=== PATIENT | female | born 1960 | race Caucasian/White ===

== ENCOUNTER 2017-04-23 14:00 | Inpatient (IN) | payer MEDICARE, OTHER ==
[~2017-04-23] VITALS: Ht 162.6 cm; Wt 87.5 kg
--- NOTE | ~2017-04-23 | PN ---
Unit #: [id number] #: [id number] Patient: RUTH YEUNG [id number] [facility] [address] [place] [address] [id number] I MR#: [id number] NAME: RUTH YEUNG ROOM: [facility] Age: 56 Sex: F Admission Date: 04/23/2017 : 1960 Attending Physician: Venu Jeff M.D. Admitting Physician: Venu Jeff M.D. Primary Care Physician: Generic Doctor Not In System [facility] PROGRESS NOTES DATE 04/27/2017 DISCUSSION Ms. Ruth Yeung is a 56-year-old female, seen on 04/27/2017. The patient reported still feeling sad, depressed, anxious, wanted her Klonopin back. The patient had multiple symptoms but seems to do okay after assurance but according to the report, thought process circumstantial, paranoid. The patient's Accu-Cheks were 42 and 108, Levemir 21 units given in the morning. The patient was somewhat shaky in the morning but still feeling sad, depressed, anxious. REVIEW OF SYSTEMS Complete review of systems unremarkable. MENTAL STATUS EXAMINATION General appearance: Patient dressed casually, walked with the help of a walker. Attention span and concentration, fair. Oriented in time, place, and person. Mood and affect, sad, dysphoric, anxious. Speech, regular rate. Thought process, goal-directed. The patient denied any thoughts of harming self or others but somewhat circumstantial, thought process. Recent and remote memory, poor. Insight and judgment, poor. DIAGNOSIS Schizoaffective disorder, bipolar type. ASSESSMENT/PLAN Advised to continue with the current medication and therapeutic protocol, and if needed consider further adjustment of medication. Dictated by... Lashawn Alves/damián TD: 04/28/2017 06:17 JOB #: [id number] Unit #: [id number] #: [id number] Patient: RUTH YEUNG [facility] PROGRESS NOTES Page 1 of 1 X Venu Jeff MD PROGRESS NOTE
--- NOTE | ~2017-04-23 | DS ---
Unit #: [id number] #: [id number] Patient: RADHA YEUNG [id number] [facility] [address] [place] [address] [id number] MR#: [id number] NAME: RADHA YEUNG ROOM: [facility] Age: 56 Sex: F Admission Date: 04/23/2017 : 1960 Discharge Date: 04/30/2017 Attending Physician: eVnu Jeff M.D. Primary Care Physician: Generic Doctor Not In System DISCHARGE SUMMARY REASON FOR ADMISSION Depression. DIAGNOSTIC STUDIES LABORATORY DATA: Glucose 120. HOSPITAL COURSE The patient was admitted to inpatient unit on April 23 and discharged on 04/30/17. Patient was treated on the inpatient unit with medication management, psychotherapy, and structured milieu. Patient initially showed improvement, but continues to report having severe anxiety and wanted to change her medication. Patient refused to participate in group therapy. Reported feeling anxious. Patient, this afternoon, was slow to respond and psychomotor retardation noted. Patient's Accu-Chek was 158 and temperature 91.1. Patient's vital signs: 186/83, heart rate 109, and oxygen saturation 96%. Code was called and, subsequently, patient was transferred to [facility] for medical stabilization. DISCHARGE MEDICATIONS 1. Zestril 20 mg daily for hypertension. 2. Trazodone 75 mg at bedtime for sleep. 3. Cogentin 1 mg b.i.d. for EPS symptoms. 4. KlonoPIN 0.5 mg t.i.d. for anxiety. 5. Effexor XR 225 mg daily for depression. 6. SEROquel 200 mg at bedtime for psychosis. 7. Celexa 20 mg daily for depression. 8. Vistaril 25 mg 3 times a day for anxiety. 9. NovoLog. 10. Levemir. 11. Saphris 10 mg daily for psychosis. DISCHARGE DIAGNOSES PSYCHIATRIC: Schizoaffective disorder, bipolar type, F25.9. SECONDARY DIAGNOSIS: Deferred. MEDICAL DIAGNOSIS 1. Obesity. 2. Diabetes mellitus. 3. Chronic obstructive pulmonary disease. 4. Hypertension. 5. Hypercholesterolemia. Unit #: [id number] #: [id number] Patient: RADHA YEUNG 6. Patient is on a colostomy bag. STRESSORS: Psychosocial stressors. INSTRUCTIONS TO PATIENT Patient to follow up in outpatient clinic as per social media marketer. CONDITION AT DISCHARGE Patient pleasant and cooperative without any psychotic symptoms or any suicidal ideation. PROGNOSIS Guarded. DIET AND ACTIVITY As tolerated. Dictated by... Lashawn Alves/jaja TD: 05/01/2017 14:19 JOB #: [id number] DISCHARGE SUMMARY Page 1 of 1 X Venu Jeff MD X DISCHARGE SUMMARY
--- NOTE | ~2017-04-23 | PA ---
Unit #: [id number] #: [id number] Patient: RUTH YEUNG [id number] [facility] [address] [place] [address] [id number] MR#: [id number] NAME: RUTH YEUNG ROOM: [facility] Age: 56 Sex: F Admission Date: 04/23/2017 : 1960 Date of Assessment: Attending Physician: Venu Jeff M.D. Admitting Physician: Venu Jeff M.D. Primary Care Physician: Generic Doctor Not In System PSYCHIATRIC ASSESSMENT INFORMANTS The patient reliability, fair; chart reliability, good. CHIEF COMPLAINT Depression and suicidal ideation. HISTORY OF PRESENT ILLNESS Ms. Ruth Yeung is a 56-year-old female, presented with the above-mentioned complaint. The patient reported that her medications are not working. She is afraid, fearful, sad, depressed, suicidal ideation. The patient reports that her anxiety is paralyzing her thinking of suicide everyday. The patient reported diagnosed with panic disorder and schizophrenia. The patient reports that she had surgery in December and then she messed up. The patient reports that she has always had psych history, but it is getting worse some. The patient reports in the last 6 weeks, it has been like a revolving tour between [place] and [facility]. The patient reports that she does have a drug issue, abusing prescription medication both pain medication and psychiatric medication. Yesterday someone called the police because they were concerned that she has not been taking care of. The patient lives alone with a dog. The patient reports that her ex- checks on her daily. The patient reports that she has not heard him in the last 4 days. The patient reports currently on fixed income struggling. The patient has diabetes, hypertension, colostomy bag, history of migraine, sleeping 4 hours, appetite fair, suicidal ideation, needing inpatient admission at this time for psychiatric stabilization. PAST PSYCHIATRIC HISTORY Remarkable for history of multiple [facility] at [facility]/2015, 2005, 2004. Outpatient services through [facility]. Outpatient followup with Dr. Gorman for med management. FAMILY HISTORY AND SOCIAL HISTORY The patient lives alone, poor support system. No known history of any abuse. The patient's family history is remarkable for history of alcohol abuse in paternal side of the family and substance abuse in biological parents. MEDICAL HISTORY Remarkable for history of hypertension, migraine. The patient has a colostomy bag. History of morbid obesity, diabetes mellitus, COPD, hypercholesterolemia, hypertension. Unit #: [id number] #: [id number] Patient: RUTH YEUNG MEDICATION HISTORY The patient is on Seroquel XR 400 mg at bedtime, NovoLog, Levemir, melatonin 5 mg at bedtime, Desyrel 100 mg at bedtime, Celexa 40 mg daily, Neurontin 600 mg q.i.d., Saphris 10 mg b.i.d., Claritin 10 mg daily, Protonix 40 mg daily, Linzess 290 mcg daily, Klor-Con M10 daily, aspirin 81 mg daily, furosemide 20 mg daily, Effexor 300 mg daily, and Glucophage 500 mg daily. ALLERGIES Macrobid. SUBSTANCE ABUSE HISTORY The patient admitted abuse of psych medication. History of tobacco use, age of onset 14; history of abuse of opiates and benzodiazepine. REVIEW OF SYSTEMS HEENT: Eyes, clear. Ears, nose, mouth, and throat; clear. CARDIOVASCULAR: Unremarkable. RESPIRATORY: Unremarkable. GI: Unremarkable. : Unremarkable. SKIN: Unremarkable. LYMPH NODE: Unremarkable. NEUROLOGIC: Unremarkable. ENDOCRINE: Unremarkable. HEMATOLOGIC: Unremarkable. ALLERGIC/IMMUNOLOGIC: Unremarkable. MUSCULOSKELETAL: Muscle strength and tone, no atrophy or abnormal movement. Gait normal MENTAL STATUS EXAMINATION CONSTITUTIONAL: Measurement of vital signs; temperature is 98.0, pulse 101, respirations 18, oxygen saturation 95%, blood pressure 120/90, height 5 feet 4 inches, and weight 193 pounds. GENERAL APPEARANCE: The patient dressed casually, moderately obese. No facial deformity noted. MUSCULOSKELETAL: Please see above. PSYCHIATRIC EXAMINATION Description of speech; rapid in rate, spontaneous. Description of thought process, circumstantial. Description of association, guarded and paranoid. Description of abnormal psychotic thinking, guarded paranoid, mood lability, depression, suicidal ideation. Description of the patient's judgment, concerning everyday activity, poor. Social situation, poor. Concerning psychiatric condition, poor. Complete mental status examination; oriented in time, place, and person. Recent and remote memory, fair. Attention span and concentration, fair. Language, able to name object and repeat phrases. Fund of knowledge, aware of current event and passive vocabulary intact. Mood and affect, sad and dysphoric. Insight and judgment, fair to poor. The patient is also somewhat guarded and paranoid. ASSETS AND LIABILITIES Assets; the patient is articulate, able to take care of her ADL. Liability; history of depression, psychosis, and anxiety. ADMITTING DIAGNOSES Unit #: [id number] #: [id number] Patient: RUTH YEUNG Psychiatric: Schizoaffective disorder, bipolar type, F25.9; rule out schizophrenia, chronic, paranoid type, F20.0; bipolar mood disorder, recurrent depressed, F31.9; history of opioid pain medication dependence abuse, F11.20. Secondary diagnosis: Deferred. Medical diagnosis: History of morbid obesity, diabetes mellitus, chronic obstructive pulmonary disease, hypertension, hypercholesterolemia. The patient has a colostomy bag. Stressors: Psychosocial stressor. PSYCHIATRIC PLAN AND TREATMENT GOAL AND DISCHARGE PLAN 1. Advised to admit the patient on the inpatient unit. Provide safe, supportive, and structured environment. 2. Ordered labs; CBC, CMP, UA, and UDS. 3. Precaution for self-harm, VTS monitoring, C1 precaution. 4. Advised to continue with the home medication at this time. The patient is on multiple medication. We will watch her closely. The patient is on 2 antipsychotics, 2 antidepressants, also taking Neurontin, try to keep the medication minimum as possible but for anxiety, the patient is requesting for Klonopin and will try to avoid and consider Vistaril for anxiety. The patient to attend group therapy, individual therapy. 5. Treatment goal; to attain euthymic mood, gain insight into her problem, and learn coping skills. 6. Discharge plan; plan to stabilize the patient and consider followup in outpatient program. ESTIMATED LENGTH OF STAY 2 weeks. Dictated by... Venu Jeff M.D. EDGAR/aravind TD: 04/24/2017 17:44 JOB #: [id number] PSYCHIATRIC ASSESSMENT Page 1 of 1 X Venu Jeff MD PSYCHIATRIC ASSESSMENT
--- NOTE | ~2017-04-23 | CO ---
Unit #: [id number] #: [id number] Patient: RUTH YEUNG [id number] [facility] [address] [place] [address] [id number] MR#: [id number] NAME: RUTH YEUNG ROOM: [facility] Age: 56 Sex: F Admission Date: 04/23/2017 : 1960 Attending Physician: Venu Jeff M.D. Primary Care Physician: Generic Doctor Not In System Consultation Date: 04/27/2017 CONSULTATION REPORT HISTORY OF PRESENT ILLNESS Ruth reports that for the past 4 days, she has felt dizzy and she has also noticed some jerking movements. She is unsure how long she has had these tracking movements. It could have been several days or several months, she is not sure. She is a poor historian. She also reports that her ears feel stopped up. This morning when she was trying to go the bathroom, she had to sit on the floor because she felt really dizzy. She is currently ambulating with a walker and she says this helps with her dizziness. She has no fever. No sore throat. No cough. No other complaints. PHYSICAL EXAMINATION CARDIAC: Regular rate and rhythm. No murmurs, gallops, or rubs. RESPIRATORY: Clear to auscultation bilaterally. ENT: No lymphadenopathy. Left cerumen impaction. ASSESSMENT AND PLAN 1. Cerumen impaction. We will use Murine ear wax removal drops and the patient is instructed to follow up with primary care provider. Please notify, if dizziness continues. 2. Jerking movements. CMP was reviewed and appears to be normal. We will obtain mag level as well. Dictated by... Keri Jay/aravind TD: 04/28/2017 04:08 JOB #: [id number] Unit #: [id number] #: [id number] Patient: RUTH YEUNG CONSULTATION REPORT Page 1 of 1 X MIKE TORRES APRN X CONSULTATION REPORT
--- NOTE | ~2017-04-23 | CO ---
Unit #: [id number] #: [id number] Patient: RUTH YEUNG [id number] [facility] [place] [address] [id number] MR#: [id number] NAME: RUTH YEUNG ROOM: [facility] Age: 56 Sex: F Admission Date: 04/23/2017 : 1960 Attending Physician: Venu Jeff M.D. Primary Care Physician: Generic Doctor Not In System CONSULTATION REPORT Medical consult was requested by Dr. Jeff and completed on 04/28/2017. HISTORY OF PRESENT ILLNESS Ruth had blood pressure 120/70 and 130/77 with heart rate of 117 and 94. She also had a potassium 3.9, creatinine 1.4, GFR 41.3, and sodium of 134. She has prescribed to her hydrochlorothiazide 50 mg t.i.d. and has been taking this at home as well. She has a history of low blood pressure that caused a fall as well. She denies any headaches, blurry vision, dizziness, or shortness of breath, and has no chest pain. No other complaints. PHYSICAL EXAMINATION CARDIAC: Regular rate and rhythm. No murmurs, gallops, or rubs. RESPIRATORY: Clear to auscultation bilaterally. ASSESSMENT AND PLAN Hypotension with an abnormal BMP. I believe that low potassium, creatinine, and sodium are all likely due to her dose of hydrochlorothiazide. We will decrease her hydrochlorothiazide to 50 mg once daily. Check her blood pressure three times daily and repeat BMP in the morning. We will continue to follow her. Dictated by... Keri Jay/aravind TD: 05/11/2017 19:17 JOB #: [id number] CONSULTATION REPORT Page 1 of 1 X MIKE TORRES APRN X CONSULTATION REPORT
--- NOTE | ~2017-04-23 | PN ---
Unit #: [id number] #: [id number] Patient: RUTH YEUNG [id number] [facility] [address] [place] [address] [id number] MR#: [id number] NAME: RUTH YEUNG ROOM: [facility] Age: 56 Sex: F Admission Date: 04/23/2017 : 1960 Attending Physician: Venu Jeff M.D. Admitting Physician: Venu Jeff M.D. Primary Care Physician: Cezar Doctor Not In System [facility] PROGRESS NOTES DATE 04/28/2017 DISCUSSION Ms. Ruth Yeung is a 56-year-old female, seen on 04/28/2017. The patient interviewed, chart reviewed, and obtained information from the nursing staff. The patient was walking with the help of a walker, mood was labile. The patient seemed to be very anxious, nervous. Vital signs stable, 98.4, 117, 16, and 120/70. The patient reported having severe anxiety. The patient is on multiple medications. REVIEW OF SYSTEMS Complete review of systems unremarkable. MENTAL STATUS EXAMINATION General appearance: Patient dressed casually, moderately obese. Walked with the help of a walker. Attention span and concentration, fair. Oriented in time, place, and person. Mood and affect, labile. Speech, rapid. Thought process, circumstantial. The patient denied any thoughts of harming self or others but passive SI, severe anxiety, seclusive, isolative, reported having trouble in crowds. Recent and remote memory, poor. Insight and judgment, poor. DIAGNOSIS Schizoaffective disorder, bipolar type. ASSESSMENT/PLAN Recommending at this time to cut back on the medication as higher dosage may be making her worse, we will try on a lower dosage, cutting back Effexor from 300 to 225 mg daily, decreasing Saphris from 10 mg twice daily to 10 mg at bedtime only, decrease in Celexa from 40 to 20 mg daily. We will continue to follow up if needed consider further adjustment of Vistaril. The patient is to continue with the inpatient programming and also discontinue Thorazine. Dictated by... Venu Jeff M.D. Unit #: [id number] #: [id number] Patient: RUTH YEUNG EDGAR/damián TD: 04/29/2017 08:04 JOB #: [id number] [facility] PROGRESS NOTES Page 1 of 1 X Venu Jeff MD PROGRESS NOTE
--- NOTE | ~2017-04-23 | PN ---
Unit #: [id number] #: [id number] Patient: RUTH YEUNG [id number] [facility] [address] [place] [address] [id number] I MR#: [id number] NAME: RUTH YEUNG ROOM: [facility] Age: 56 Sex: F Admission Date: 04/23/2017 : 1960 Attending Physician: Venu Jeff M.D. Admitting Physician: Venu Jeff M.D. Primary Care Physician: Generic Doctor Not In System [facility] PROGRESS NOTES DATE 04/29/2017 DISCUSSION Ruth Yeung is a 56-year-old female seen on 04/29/2017. Patient interviewed. Chart reviewed. Obtained information from nursing staff. Patient reported severe anxiety. Patient reports that she was on Klonopin that helped her. Patient also reported having trouble sleeping, recently her medications lowered because of possible tardive dyskinesia, EPS symptoms. Patient's vital signs 98.7, 89, 20, 124/61. Complete review of system unremarkable. MENTAL STATUS EXAMINATION General appearance, patient dressed casually. Attention span, concentration fair. Oriented in time, place and person. Mood and affect labile. Speech rapid. Thought process circumstantial. Patient denied any suicidal ideation but passive SI, withdrawn, isolative, anxious, paranoia. Recent and remote memory poor. Insight and judgement poor. DIAGNOSIS Schizoaffective disorder, bipolar disorder. ASSESSMENT/PLAN Advised to continue with the current medication, Cogentin 1 mg b.i.d. for EPS symptoms. Also, added Klonopin 0.5 mg t.i.d. We will monitor very closely. Patient is on a lower dosage of medication. If needed, consider further adjustment of medication. Dictated by... Lashawn Alves/teodora TD: 04/29/2017 20:43 JOB #: [id number] Unit #: [id number] #: [id number] Patient: RUTH YEUNG [facility] PROGRESS NOTES Page 1 of 1 X Venu Jeff MD X PROGRESS NOTE
--- NOTE | ~2017-04-23 | PN ---
Unit #: [id number] #: [id number] Patient: RUTH YEUNG [id number] [facility] [address] [place] [address] [id number] I MR#: [id number] NAME: RUTH YEUNG ROOM: [facility] Age: 56 Sex: F Admission Date: 04/23/2017 : 1960 Attending Physician: Venu Jeff M.D. Admitting Physician: Venu Jeff M.D. Primary Care Physician: Generic Doctor Not In System [facility] PROGRESS NOTES DATE 04/26/2017 DISCUSSION Ms. Ruth Yeung is a 56-year-old female seen on 04/26/2017. Patient continues to report that she needs to be on Klonopin. Patient possibly was taking pain medication and maybe having withdrawals. The patient was having problem with the dizziness, mood lability. Patient was subsequently started on COWS protocol for opiate withdrawal. Patient's mood sad, dysphoric, withdrawn, guarded, paranoid, mood lability, irritability, reporting severe anxiety. Complete review of system unremarkable. MENTAL STATUS EXAMINATION General appearance, patient dressed casually. Attention span, concentration poor. Oriented in place and person. Mood and affect labile. Speech monotone. Thought process concrete. Patient guarded, paranoid, mood lability, severe anxiety, isolative, passive SI. Recent and remote memory poor. Insight and judgement poor. DIAGNOSIS Schizoaffective disorder, bipolar type. ASSESSMENT/PLAN Advised to continue with current medication and therapeutic protocol. If needed, consider further adjustment of medication. Dictated by... Lashawn Alves/teodora TD: 04/27/2017 15:15 JOB #: [id number] Unit #: [id number] #: [id number] Patient: RUTH YEUNG PROGRESS NOTES Page 1 of 1 X Venu Jeff MD PROGRESS NOTE
--- NOTE | ~2017-04-23 | PN ---
Unit #: [id number] #: [id number] Patient: RUTH YEUNG [id number] [facility] [address] [place] [address] [id number] MR#: [id number] NAME: RUTH YEUNG ROOM: [facility] Age: 56 Sex: F Admission Date: 04/23/2017 : 1960 Attending Physician: Venu Jeff M.D. Admitting Physician: Venu Jeff M.D. Primary Care Physician: Generic Doctor Not In System [facility] PROGRESS NOTES DATE 04/24/2017 DISCUSSION Ms. Ruth Yeung is a 56-year-old male, seen on 04/24/2017. The patient interviewed, chart reviewed, and obtained information from the nursing staff. The patient was compliant and cooperative. Mood labile, anxious, nervous, sad and depressed, reported severe anxiety, suicidal ideation. REVIEW OF SYSTEMS Complete review of systems unremarkable. MENTAL STATUS EXAMINATION General appearance: Patient dressed casually. Attention span and concentration, fair. Oriented in time, place, and person. Mood and affect, labile. Speech, monotone. Thought process, concrete. The patient guarded, paranoid, suicidal ideation, severe anxiety. Mood lability. Recent and remote memory, poor. Insight and judgment, poor. DIAGNOSIS Schizoaffective disorder, bipolar type. ASSESSMENT/PLAN Advised to continue with the current medication with the plan to add Vistaril 25 mg three times a day, if needed consider further adjustment of medication. Dictated by... Lashawn Alves/damián TD: 04/26/2017 05:16 JOB #: [id number] Unit #: [id number] #: [id number] Patient: RUTH YEUNG PROGRESS NOTES Page 1 of 1 X Venu Jeff MD PROGRESS NOTE
--- NOTE | ~2017-04-23 | HP ---
Unit #: [id number] #: [id number] Patient: RADHA YEUNG [id number] [place] [address] [id number] MR#: [id number] NAME: RADHA YEUNG ROOM: [facility] Age: 56 Sex: F Admission Date: 04/23/2017 : 1960 Attending Physician: Venu Jeff M.D. Admitting Physician: Venu Jeff M.D. Primary Care Physician: Generic Doctor Not In System HISTORY AND PHYSICAL HISTORY OF PRESENT ILLNESS The patient is a 56-year-old female who states she is here for depression and "losing my mind." PAST MEDICAL HISTORY Significant for hypertension and diabetes. PAST SURGICAL HISTORY Significant for colon surgery of some sort that resulted in ostomy and also back surgery. ALLERGIES Codeine and Imitrex. SOCIAL HISTORY Negative. FAMILY HISTORY Noncontributory. REVIEW OF SYSTEMS CONSTITUTIONAL: No fever or chills. HEENT: Denies any sore throat, ear pain or runny nose. CARDIOVASCULAR: Denies chest pain, irregular heart rhythm or palpitations. CHEST: Denies shortness of breath or cough. No hemoptysis. GASTROINTESTINAL: Denies nausea, vomiting, diarrhea or chronic constipation. ENDOCRINE: Denies history of increased thirst or urination. No recent significant weight loss or gain. GENITOURINARY: Denies dysuria, frequency, or hematuria. SKIN: Denies any rashes. HEMATOLOGIC: Denies history of increased bleeding or bruising. MUSCULOSKELETAL: Denies any hot, swollen joints. No generalized muscle pain. NEUROLOGIC: Denies problems with vision or speech. No frequent, severe headaches. No numbness, tingling or weakness in any extremities. Denies loss of bladder or bowel control. CURRENT MEDICATIONS 1. Celexa 40 mg p.o. q.h.s. 2. Seroquel 400 mg p.o. q.h.s. 3. Trazodone 100 mg p.o. q.h.s. 4. Saphris 10 mg p.o. b.i.d. Unit #: [id number] #: [id number] Patient: RADHA YEUNG 5. Effexor 300 mg p.o. daily. 6. Klonopin 1 mg p.o. t.i.d. 7. Neurontin 600 mg p.o. q.i.d. 8. Lasix 20 mg p.o. daily. 9. Hydrochlorothiazide 50 mg p.o. t.i.d. 10. Aspirin 81 mg p.o. daily. 11. Potassium 10 mEq p.o. daily. 12. Pravastatin, dose unknown. 13. Linzess 290 mcg p.o. daily. 14. Levemir 20 units daily. 15. NovoLog per sliding scale. 15. Accu-Cheks a.c. and h.s. 16. Flexeril, dose unknown, currently dc'd. 17. Glucophage 500 mg p.o. t.i.d. 18. Protonix 40 mg p.o. daily. 19. Claritin 10 mg p.o. daily. PHYSICAL EXAMINATION GENERAL: Alert, oriented, in no acute distress. VITAL SIGNS: Blood pressure 120/69, heart rate 101. HEIGHT: 5 feet 4 inches. WEIGHT: 193 pounds. SKIN: Warm and dry without rash or lesion. Patient does have a colostomy left lower quadrant. Scar to the left upper arm and moles to bilateral chest area. HEENT: Normocephalic. TMs not viewed. Oral and nasal passages clear. Conjunctivae clear. PERRLA. EOMs intact. NECK: Supple without lymphadenopathy or thyromegaly. HEART: Regular rate and rhythm without murmur. LUNGS: Clear. ABDOMEN: Soft, nontender, without masses or hepatosplenomegaly. : Not done. EXTREMITIES: No evidence of cyanosis, clubbing or edema. Moves all without focal deficit. NEUROLOGICAL: Grossly within normal limits. Cranial Nerves: II: Visual funes are intact. III, IV AND : Extraocular movements are intact. Pupils are equal, round and reactive to light. V: Facial sensation is grossly normal. VII: Facial movements and expression are normal. VIII: Auditory acuity grossly intact. IX, X: Uvula is midline. Phonation is normal. XI: Patient shrugs shoulders and turns head normally. XII: Tongue protrudes in the midline. Sensory and Motor Function: Sensory and motor sensation is grossly normal. Motor: moves all extremities well. Coordination: Gait is normal. Deep Tendon Reflexes: Intact. IMPRESSION Psychiatric admission. RECOMMENDATIONS PSYCHIATRIC: Per psychiatrist. MEDICAL: No contraindication to participate in facility's activities. MEDICAL PROGNOSIS Good. Unit #: [id number] #: [id number] Patient: RADHA YEUNG Dictated by..Keri Zaragoza/teodora TD: 04/24/2017 15:54 JOB #: [id number] HISTORY AND PHYSICAL Page 1 of 1 X Kira García APR X HISTORY AND PHYSICAL
--- NOTE | ~2017-04-23 | CO ---
Unit #: [id number] #: [id number] Patient: RADHA YEUNG [id number] [facility] [address] [place] [address] [id number] MR#: [id number] NAME: RADHA YEUNG ROOM: [facility] Age: 56 Sex: F Admission Date: 04/23/2017 : 1960 Attending Physician: Venu Jeff M.D. Primary Care Physician: Generic Doctor Not In System CONSULTATION REPORT REASON FOR CONSULT Diabetes. SUBJECTIVE "I've had diabetes for a long time and I see Dr. Jean Paul Mejia for that when I'm not here and I take Levemir 36 units twice a day and other medicines and metformin and I think I'm doing fine." OBJECTIVE Vital signs within normal limits. Last Accu-Check on patient last night at bed was 190. ASSESSMENT Insulin-dependent diabetes. PLAN The patient will have Levemir 20 units subcutaneously q.a.m. starting today and also will have sliding scale correctional per protocol and Accu-Cheks a.c. and h.s. Dictated by... Keri Lyle/teodora TD: 04/24/2017 15:16 JOB #: [id number] CONSULTATION REPORT Page 1 of 1 X Kira García APR X CONSULTATION REPORT
--- NOTE | ~2017-04-23 | PN ---
Unit #: [id number] #: [id number] Patient: RUTH YEUNG [id number] [facility] [address] [place] [address] [id number] I MR#: [id number] NAME: RUTH YEUNG ROOM: [facility] Age: 56 Sex: F Admission Date: 04/23/2017 : 1960 Attending Physician: Venu Jeff M.D. Admitting Physician: Venu Jeff M.D. Primary Care Physician: Generic Doctor Not In System [facility] PROGRESS NOTES DATE OF SERVICE 04/25/2017 DISCUSSION Ruth Yeung is a 56-year-old female seen on 04/25/2017. The patient interviewed, chart reviewed. Obtained information from nursing staff. The patient's vital signs stable. The patient continues to ask for Klonopin, history of abuse of prescription medication in the past. The patient sad, depressed, withdrawn, isolative, guarded, flat affect. Complete Review of Systems: Unremarkable. MENTAL STATUS EXAMINATION General Appearance: The patient dressed casually. Attention span, concentration: Poor. Oriented in place and person. Mood and affect labile. Speech: Monotone. Thought process: Mobile. The patient denied any thoughts of harming others but having passive SI. Withdrawn, isolative, sad, dysphoric. Recent and remote memory: Poor. Insight and judgment: Poor. DIAGNOSES 1. Major depressive disorder, recurrent. 2. Schizoaffective disorder. ASSESSMENT/PLAN Advised to continue with current medication and therapeutic protocol. If needed, consider further adjustment of medication. Dictated by... Lashawn Alves/paolo TD: 04/27/2017 06:51 JOB #: [id number] Unit #: [id number] #: [id number] Patient: RUTH YEUNG [place]BERT[place] PROGRESS NOTES Page 1 of 1 X Venu Jeff MD X PROGRESS NOTE
[~2017-04-23 14:00] MED LIST: ALBUTEROL17 GM; ALPRAZOLAM; BENTYL10 MG PO; BUSPAR15 M2 PO; BYSTOLIC5 MG PO; CLARITIN10 M3 PO; CLONAZEPAM2 MG PO; CYMBALTA; DOCUSATE SODIU100 MG PO; FIORICET1 TAB PO; FLOVENT HFA12 GM; GEODAN; HYDROCODON-ACE1 EAC5 PO; IMITREX20 MG/SPRA NS; KLONOPIN; MACROBID100 MG PO; MELATONIN5 M1 PO; NEURONTIN PO; NEURONTIN300 MG PO; PAXIL; PAXIL40 MG PO; PHENERGAN12.5 MG/SU RC; PHENERGAN25 M1 PO; PRILOSEC PO; PRILOSEC20 MG PO; REGLAN; REMERON; REMERON15 MG PO; ROBAXIN; SAPHRIS5 MG SL; SEREVENT D50 MCG/DIS; SEROQUEL PO; SEROQUEL XR300 MG PO; SPIRIVA18 MCG INH; TOPAMAX; TOPAMAX PO; ZOLPIDEM TARTRAT5 MG PO
[2017-04-25 12:26] LABS: URINE APPEARANCE CLEAR; URINE BILIRUBIN NEG (NEG); URINE BLOOD TRACE (NEG); URINE COLOR YELLOW; URINE GLUCOSE NEG (NEG); URINE KETONE NEG (NEG); URINE LEUKOCYTE ESTERASE 2+ (NEG); URINE NITRATE NEG (NEG); URINE PROTEIN NEG (NEG); URINE SPECIFIC GRAVITY 1.006 (1.003-1.035); URINE UROBILINOGEN 0.2 MG/DL (NEG)
[2017-04-25 12:31] LABS: URBCS1 AUWI 0-2 /[HPF] (0-2); URINE BACTERIA AUWI NEG (NEGATIVE); URINE SQUAMOUS EPITHELIAL CELL OCC /[HPF]
[2017-04-25 12:57] LABS: AMPHETAMINE NEG (NEG); BARBITURATES NEG (NEG); BENZODIAZEPINES NEG (NEG); COCAINE NEG (NEG); MARIJUANA NEG (NEG); OPIATES NEG (NEG); TRICYCLIC ANTIDEPRESSANTS POS (NEG); U METHADONE NEG (NEG)
[2017-04-26 09:54] LABS: BASOPHIL# 0.1 X10e3 (0-0.3); BASOPHIL% 0.5 % (0-2.5); EOSINOPHIL# 0.1 X10e3 (0-0.7); EOSINOPHIL% 0.8 % (0.0-7.0); HEMATOCRIT 38.6 % (35.0-45.0); HEMOGLOBIN 12.5 gm/dL (12.0-16.0); LYMPHOCYTE# 2.3 X10e3 (1.0-3.5); LYMPHOCYTE% 23.6 % (17.0-45.0); MEAN CELL VOLUME 85.5 FL (83-96); MEAN CORPUSCULAR HEMOGLOBIN 27.7 PG (28-34); MEAN CORPUSCULAR HGB CONC 32.4 g/dL (30-36); MONOCYTE# 0.6 X10e3 (0-1.0); MONOCYTE% 6.3 % (3.0-12.0); NEUTROPHIL# 6.6 X10e3 (1.5-7.1); NEUTROPHIL% 68.8 % (40-75); PLATELET COUNT 436 X10e3 (140-420); RED BLOOD COUNT 4.52 X10e (3.90-5.30); RED CELL DISTRIBUTION WIDTH 15.5 % (11.0-15.5); WHITE BLOOD COUNT 9.5 X10e3 (4.0-10.5)
[2017-04-26 10:03] LABS: DIFF IND NO
[2017-04-26 10:28] LABS: ALBUMIN SERUM 4.1 g/dL (3.5-5.0); BILIRUBIN,TOTAL 0.6 mg/dL (0.2-2.0); CALCIUM SERUM 9.8 mg/dL (8.4-10.2); CREATININE SERUM 1.4 mg/dL (0.6-1.4); GLOM FILT RATE Estimated 41.3 mL/min (>60); POTASSIUM 3.9 mmol/L (3.5-5.1); PROTEIN TOTAL SERUM 7.4 g/dL (6.0-8.3)
[2017-04-29 10:23] LABS: BUN/CREATININE RATIO 17.69; CALCIUM SERUM 9.7 mg/dL (8.4-10.2); CREATININE SERUM 1.3 mg/dL (0.6-1.4); GLOM FILT RATE Estimated 45.2 mL/min (>60); POTASSIUM 3.1 mmol/L (3.5-5.1)
== END 2017-04-30 16:05 | DRG 885 ==
LOC: P2L 16:24 → POF 20:41 → P2L 20:43
PROVIDERS: Psychiatry & Neurology Psychiatry
DX: F25.0 Schizoaffective disorder, bipolar type (principal); E66.01 Morbid (severe) obesity due to excess calories; I10 Essential (primary) hypertension; E11.9 Type 2 diabetes mellitus without complications; J44.9 Chronic obstructive pulmonary disease, unspecified; E78.00 Pure hypercholesterolemia, unspecified; Z79.4 Long term (current) use of insulin; H61.20 Impacted cerumen, unspecified ear; Z93.3 Colostomy status
CPT/HCPCS: 80048; 80053; 80307; 81003; 82947; 83735; 85025; 86592